=== PATIENT | female | born 1985 | race Caucasian/White ===

== ENCOUNTER 2017-02-25 17:24 | Emergency (ER) | payer MEDICAID ==
[~2017-02-25] VITALS: Ht 162.6 cm; Wt 50.9 kg
[~2017-02-25 17:24] MED LIST: TRAM1TAB56 PO
[2017-02-25 17:26] VITALS: BP 131/82
[2017-02-25] MEDS ORDERED: KETOROLAC 30 MG/1 ML ONE (18:51)
[2017-02-25] MEDS ORDERED: HYDROcodone/APAP 5/325 TABLET ONE (18:51)
[2017-02-25] MEDS ORDERED: DIAZEPAM 5 MG TABLET ONE (18:51)
[2017-02-25] MEDS ORDERED: HYDROcodone/APAP 5/325 TABLET PO ONE (19:00)
[2017-02-25] MEDS ORDERED: DIAZEPAM 5 MG TABLET PO ONE (19:00)
[2017-02-25] MEDS ORDERED: KETOROLAC 30 MG/1 ML IM ONE (19:00)
[2017-02-25] MEDS ORDERED: OXYcodone/APAP 7.5/325MG TABLET ONE (20:12)
[2017-02-25] MEDS ORDERED: OXYcodone/APAP 7.5/325MG TABLET PO ONE (20:30)
== END 2017-02-25 20:57 | disposition home or self-care (01) ==
LOC: ED 20:30
DX: S33.5XXA Sprain of ligaments of lumbar spine, initial encounter (principal); G89.11 Acute pain due to trauma; W01.0XXA Fall on same level from slipping, tripping and stumbling without subsequent striking against object, initial encounter; Y93.E1 Activity, personal bathing and showering; Y92.002 Bathroom of unspecified non-institutional (private) residence as the place of occurrence of the external cause; Y99.8 Other external cause status
CPT/HCPCS: 72110; 96372; 99284; J1885

== ENCOUNTER 2017-05-09 17:10 | Emergency (ER) | payer MEDICAID, OTHER ==
[~2017-05-09] VITALS: Ht 162.6 cm; Wt 48.7 kg
[2017-05-09 17:11] VITALS: BP 139/93
[2017-05-09] MEDS ORDERED: KETOROLAC 30 MG/1 ML ONE (17:49)
[2017-05-09] MEDS ORDERED: DIAZEPAM 5 MG TABLET ONE (17:49)
[2017-05-09] MEDS ORDERED: DIAZEPAM 5 MG TABLET PO ONE (18:00)
[2017-05-09] MEDS ORDERED: KETOROLAC 30 MG/1 ML IM ONE (18:00)
== END 2017-05-09 18:47 | disposition home or self-care (01) ==
LOC: ED 18:40
DX: S46.911A Strain of unspecified muscle, fascia and tendon at shoulder and upper arm level, right arm, initial encounter (principal); X58.XXXA Exposure to other specified factors, initial encounter; Y93.89 Activity, other specified; Y92.89 Other specified places as the place of occurrence of the external cause; Y99.8 Other external cause status
CPT/HCPCS: 72050; 72072; 73030; 96372; 99284; J1885

== ENCOUNTER 2019-01-14 18:06 | Emergency (ER) | payer MEDICAID, OTHER ==
[~2019-01-14] VITALS: Ht 162.6 cm; Wt 49.6 kg
[2019-01-14 18:18] VITALS: BP 123/84
[2019-01-14] MEDS ORDERED: AZITHROMYCIN 500 MG TABLET ONE (19:19)
[2019-01-14] MEDS ORDERED: BENZONATATE 100 MG CAPSULE PO ONE (19:30)
[2019-01-14] MEDS ORDERED: AZITHROMYCIN 500 MG TABLET PO ONE (19:30)
== END 2019-01-14 19:34 | disposition home or self-care (01) ==
LOC: ED 19:24
DX: J20.8 Acute bronchitis due to other specified organisms (principal); M19.90 Unspecified osteoarthritis, unspecified site
CPT/HCPCS: 71046; 99283

== ENCOUNTER 2019-02-20 16:05 | Emergency (ER) | payer MEDICAID ==
[~2019-02-20] VITALS: Ht 162.6 cm; Wt 46.5 kg
[2019-02-20 16:10] VITALS: BP 122/67
[2019-02-20 16:38] LABS: BASOPHILS # (AUTO) 0.02 x10^3/uL (0-0.1); BASOPHILS % (AUTO) 1 % (0-1); EOSINOPHILS # (AUTO) 0.09 x10^3/uL (0-0.4); EOSINOPHILS % (AUTO) 2 % (1-7); LYMPHOCYTES # (AUTO) 1.61 x10^3/uL (1-3.4); LYMPHOCYTES % (AUTO) 39 % (22-44); MD NO; MEAN CORPUSCULAR HEMOGLOBIN 30.7 pg (27.0-34.8); MEAN CORPUSCULAR HGB CONC 33.3 g/dL (32.4-35.8); MEAN CORPUSCULAR VOLUME 92.2 fL (80-100); MEAN PLATELET VOLUME 10.1 fL (7.4-10.4); MONOCYTES # (AUTO) 0.32 x10^3/uL (0.2-0.8); MONOCYTES % (AUTO) 8 % (2-9); NEUTROPHILS # (AUTO) 2.09 x10^3/uL (1.8-6.8); NEUTROPHILS % (AUTO) 51 % (42-75); PLATELET COUNT 223 x10^3/uL (130-400); RED BLOOD COUNT 4.72 x10^6/uL (3.82-5.3); RED CELL DISTRIBUTION WIDTH 12.6 % (9.6-15.2)
[2019-02-20 16:47] LABS: ALBUMIN 4.3 g/dL (3.4-5.0); ANION GAP 4 mmol/L (5-15); CALCIUM 8.5 mg/dL (8.5-10.1); CHLORIDE 106 mmol/L (98-107); CREATININE 0.89 mg/dL (0.55-1.02)
[2019-02-20 17:17] LABS: MICROSCOPIC NOT IND
[2019-02-20 17:21] LABS: CULTURE INDICATED? NO
--- NOTE | 2019-02-20 19:05 | NUR ---
PT TO ROOM FROM LOBBY
--- NOTE | 2019-02-20 19:20 | NUR ---
THIS IS A 33 YO FEMALE COMING IN FOR "SHARP PAIN IN MY LEFT LOWER ABDOMINAL QUADRANT X 2 DAYS. IT KEPT ME UP LAST NIGHT. I HAVE ENDOMETRIOSIS AND I HAVE A LUMP THAT'S THERE." DENIES N/V/D, HX ENDOMETRIOSIS. MD TO ROOM TO DISCUSS PLAN OF CARE. VSS IN TRIAGE, CALL LIGHT IN REACH, DENIES NEEDS AT THIS TIME.
[2019-02-20] MEDS ORDERED: ACETAMINOPHEN 500 MG TABLET PO ONE (19:30)
[2019-02-20] MEDS ORDERED: AZITHROMYCIN 500 MG TABLET PO ONE (19:30)
[2019-02-20] MEDS ORDERED: CEFTRIAXONE 250 MG IM ONE (19:30)
--- NOTE | 2019-02-20 19:39 | NUR ---
PATIENT STATES SHE JUST WANTS TO LEAVE AT THIS TIME, NOTIFIED. PATIENT STATES "MY CHILD IS JUST GETTING TOO RESTLESS AND I NEED TO TAKE HER HOME NOW. I WILL FOLLOW UP WITH MY PRIMARY CARE DOCTOR". Addendum: 02/20/19 at 1947 by RAMIRO NOTIFIED
--- NOTE | 2019-02-20 19:40 | NUR ---
TO ROOM TO PONCHO DISCHARGE
--- NOTE | 2019-02-20 19:47 | NUR ---
Patient/Caregiver given discharge instructions and they have confirmed that they understand the instructions. Patient ambulatory with steady gait.
[2019-02-20] MEDS ORDERED: KETOROLAC 30 MG/1 ML IM ONE (20:00)
== END 2019-02-20 19:56 | disposition home or self-care (01) ==
LOC: ED 19:30
DX: R59.0 Localized enlarged lymph nodes (principal); R10.2 Pelvic and perineal pain
CPT/HCPCS: 36415; 76830; 80048; 81003; 82040; 84703; 85025; 99284

== ENCOUNTER 2019-03-21 22:36 | Emergency (ER) | payer MEDICAID ==
[~2019-03-21] VITALS: Ht 162.6 cm; Wt 46.6 kg
[2019-03-21 22:39] VITALS: BP 139/96
--- NOTE | 2019-03-21 23:00 | NUR ---
THIS IS A 33 YO FEMALE COMING IN FOR LOWER LEFT QUADRANT ABD/PELVIC PAIN, VAGINAL DISCHARGE X2 WEEKS THAT "IT'S WHITE-YVONNE AND SMELLS BAD". PATIENT STATES SHE SAW HER PCP, THEY RAN STD TESTS THAT WERE NEGATIVE. PATIENT ALSO C/O "ALMOST EVERY NIGHT I WAKE UP SWEATING, I DON'N KNOW IF IT'S FEVERS OR NOT". PATIENT STATES SHE HAS BEEN DIAGNOSED WITH ENDOMETRIOSIS IN THE PAST. DENIES PAINFUL URINATION, BUT LEFT FLANK PAIN THAT STARTED TODAY. PATIENT STATES PAIN IS CURRENTLY 6/10. VSS, NAD, CALL LIGHT IN REACH, GIVEN URINE CUP FOR UA. PATIENT AMBULATORY WITH STEADY GAIT TO RESTROOM
--- NOTE | 2019-03-21 23:09 | NUR ---
PA TO ROOM TO PERFORM PELVIC EXAM
[2019-03-21 23:16] LABS: BASOPHILS # (AUTO) 0.02 x10^3/uL (0-0.1); BASOPHILS % (AUTO) 1 % (0-1); EOSINOPHILS # (AUTO) 0.07 x10^3/uL (0-0.4); EOSINOPHILS % (AUTO) 2 % (1-7); LYMPHOCYTES # (AUTO) 1.59 x10^3/uL (1-3.4); LYMPHOCYTES % (AUTO) 34 % (22-44); MD NO; MEAN CORPUSCULAR HGB CONC 33.9 g/dL (32.4-35.8); MEAN CORPUSCULAR VOLUME 91.6 fL (80-100); MEAN PLATELET VOLUME 10.2 fL (7.4-10.4); MONOCYTES # (AUTO) 0.39 x10^3/uL (0.2-0.8); MONOCYTES % (AUTO) 8 % (2-9); NEUTROPHILS # (AUTO) 2.64 x10^3/uL (1.8-6.8); NEUTROPHILS % (AUTO) 56 % (42-75); PLATELET COUNT 221 x10^3/uL (130-400); RED BLOOD COUNT 4.44 x10^6/uL (3.82-5.3); RED CELL DISTRIBUTION WIDTH 12.4 % (9.6-15.2)
[2019-03-21 23:23] LABS: ANION GAP 7 mmol/L (5-15); CALCIUM 8.2 mg/dL (8.5-10.1); CHLORIDE 107 mmol/L (98-107); CREATININE 1.16 mg/dL (0.55-1.02)
--- NOTE | 2019-03-21 23:26 | NUR ---
UA COLLECTED AND SENT
[2019-03-21] MEDS ORDERED: KETOROLAC 30 MG/1 ML ONE (23:29)
[2019-03-21 23:30] LABS: CLUE CELLS NONE SEEN (NONE SEEN)
[2019-03-21] MEDS ORDERED: KETOROLAC 30 MG/1 ML IM ONE (23:30)
[2019-03-21 23:31] LABS: WET PREP WBCS NONE SEEN (FEW)
--- NOTE | 2019-03-21 23:33 | NUR ---
PATIENT MEDICATED PER EMAR, TOLERATED WELL. PENDING LABS
[2019-03-21 23:35] LABS: HCG UR SG 1.018 (1.003-1.030); MICROSCOPIC NOT IND
[2019-03-21 23:40] LABS: CULTURE INDICATED? NO
== END 2019-03-22 00:31 | disposition home or self-care (01) ==
LOC: ED 23:59
DX: N89.8 Other specified noninflammatory disorders of vagina (principal); R10.32 Left lower quadrant pain
CPT/HCPCS: 36415; 80048; 81003; 81025; 85025; 87210; 87491; 87591; 87808; 96372; 99283; J1885

== ENCOUNTER 2019-04-10 10:47 | Emergency (ER) | payer MEDICAID ==
[~2019-04-10] VITALS: Ht 162.6 cm; Wt 45.4 kg
[2019-04-10 11:36] VITALS: BP 129/79
--- NOTE | 2019-04-10 11:40 | NUR ---
PT HERE WITH C/O DENTAL PAIN. PT STATES APPT WITH ABSOLUTE DENTAL ON 3/ BUT PAIN IS "SO BAD I CAN'T EAT." PT STATES VENIERS AND RIGHT FRONT TOOTH PAIN AND BOTTOM RIGHT MOLAR/JAW PAIN X 4 DAYS.
--- NOTE | 2019-04-10 12:27 | NUR ---
Patient/Caregiver given discharge instructions and they have confirmed that they understand the instructions. Patient ambulatory with steady gait.
== END 2019-04-10 12:33 | disposition home or self-care (01) ==
LOC: ED 12:20
DX: K08.89 Other specified disorders of teeth and supporting structures (principal); Z88.1 Allergy status to other antibiotic agents; Z88.8 Allergy status to other drugs, medicaments and biological substances
CPT/HCPCS: 64400; 64999; 99284

== ENCOUNTER 2019-10-12 17:49 | Emergency (ER) | payer MEDICAID ==
[~2019-10-12] VITALS: Ht 162.6 cm; Wt 49.1 kg
--- NOTE | 2019-10-12 18:37 | NUR ---
PT AMBULATED TO RESTROOM WITH STEADY GAIT TO PROVIDE URINE SAMPLE. UA COLLECTED AND SENT TO LAB.
[2019-10-12 18:41] LABS: BASOPHILS # (AUTO) 0.02 x10^3/uL (0-0.1); BASOPHILS % (AUTO) 0 % (0-1); EOSINOPHILS % (AUTO) 0 % (1-7); LYMPHOCYTES # (AUTO) 1.29 x10^3/uL (1-3.4); LYMPHOCYTES % (AUTO) 34 % (22-44); MD NO; MEAN CORPUSCULAR HEMOGLOBIN 30.9 pg (27.0-34.8); MEAN CORPUSCULAR VOLUME 90.9 fL (80-100); MEAN PLATELET VOLUME 9.4 fL (7.4-10.4); MONOCYTES # (AUTO) 0.37 x10^3/uL (0.2-0.8); MONOCYTES % (AUTO) 10 % (2-9); NEUTROPHILS # (AUTO) 2.15 x10^3/uL (1.8-6.8); NEUTROPHILS % (AUTO) 56 % (42-75); PLATELET COUNT 258 x10^3/uL (130-400); RED CELL DISTRIBUTION WIDTH 12.1 % (9.6-15.2)
[2019-10-12 18:44] LABS: MICROSCOPIC NOT IND
[2019-10-12 18:51] LABS: ALBUMIN 3.9 g/dL (3.4-5.0); ANION GAP 5 mmol/L (5-15); CALCIUM 8.8 mg/dL (8.5-10.1); CHLORIDE 108 mmol/L (98-107); CREATININE 0.83 mg/dL (0.55-1.02)
[2019-10-12] MEDS ORDERED: ONDANSETRON 2MG/ML, 2ML ONE (18:57)
[2019-10-12] MEDS ORDERED: MORPHINE SULFATE 4 MG/ML, 1ML ONE (18:58)
[2019-10-12] MEDS ORDERED: SODIUM CHLORIDE 0.9% 1,000ML IVBOLUS ONE (19:00)
[2019-10-12] MEDS ORDERED: MORPHINE SULFATE 4 MG/ML, 1ML IVPush PRN (19:00)
[2019-10-12] MEDS ORDERED: ONDANSETRON 2MG/ML, 2ML IVPush ONE (19:00)
--- NOTE | 2019-10-12 19:00 | NUR ---
REPORT FROM SRI SCHREIBER TO ASSUME CARE
[2019-10-12 20:23] VITALS: BP 101/68
== END 2019-10-12 20:38 | disposition home or self-care (01) ==
LOC: ED 19:13
DX: N80.9 Endometriosis, unspecified (principal); R10.32 Left lower quadrant pain; R11.0 Nausea
CPT/HCPCS: 36415; 76830; 80048; 81003; 82040; 84703; 85025; 96361; 96374; 96375; 99284; J2270; J2405; J7030

== ENCOUNTER 2019-10-24 21:45 | Emergency (ER) | payer MEDICAID ==
[~2019-10-24] VITALS: Ht 162.6 cm; Wt 50.0 kg
[2019-10-24 21:47] VITALS: BP 100/76
[2019-10-24 22:58] LABS: BASOPHILS # (AUTO) 0.03 x10^3/uL (0-0.1); BASOPHILS % (AUTO) 1 % (0-1); EOSINOPHILS % (AUTO) 0 % (1-7); LYMPHOCYTES # (AUTO) 1.65 x10^3/uL (1-3.4); LYMPHOCYTES % (AUTO) 34 % (22-44); MD NO; MEAN CORPUSCULAR HEMOGLOBIN 30.4 pg (27.0-34.8); MEAN CORPUSCULAR HGB CONC 33.1 g/dL (32.4-35.8); MEAN CORPUSCULAR VOLUME 91.8 fL (80-100); MEAN PLATELET VOLUME 9.7 fL (7.4-10.4); MONOCYTES # (AUTO) 0.44 x10^3/uL (0.2-0.8); MONOCYTES % (AUTO) 9 % (2-9); NEUTROPHILS % (AUTO) 56 % (42-75); PLATELET COUNT 205 x10^3/uL (130-400); RED CELL DISTRIBUTION WIDTH 12.3 % (9.6-15.2)
[2019-10-24 23:10] LABS: ALANINE AMINOTRANSFERASE 15 U/L (12-78); ALBUMIN 4.2 g/dL (3.4-5.0); ANION GAP 7 mmol/L (5-15); CALCIUM 8.6 mg/dL (8.5-10.1); CHLORIDE 107 mmol/L (98-107); CREATININE 0.88 mg/dL (0.55-1.02)
[2019-10-24 23:14] LABS: ALKALINE PHOSPHATASE 48 U/L (45-117); BILIRUBIN,TOTAL 0.6 mg/dL (0.2-1.0); MICROSCOPIC NOT IND; TOTAL PROTEIN 7.4 g/dL (6.4-8.2)
[2019-10-24] MEDS ORDERED: HYDROcodone/APAP 5/325 TABLET PO ONE (23:30)
[2019-10-24] MEDS ORDERED: HYDROcodone/APAP 5/325 TABLET ONE (23:39)
--- NOTE | 2019-10-25 00:17 | NUR ---
to ultrasound on stretcher w transport.
[2019-10-25] MEDS ORDERED: SODIUM CHLORIDE FLUSH 10ML SYR IVF ONE (02:30)
== END 2019-10-25 03:45 | disposition home or self-care (01) ==
LOC: ED 10-25 00:02
DX: N83.201 Unspecified ovarian cyst, right side (principal); R10.2 Pelvic and perineal pain; R10.9 Unspecified abdominal pain; K59.00 Constipation, unspecified; R11.0 Nausea; M19.90 Unspecified osteoarthritis, unspecified site
CPT/HCPCS: 36415; 74176; 76830; 80053; 81003; 84703; 85025; 99285